=== PATIENT | female | born 1995 | race Caucasian/White ===

== ENCOUNTER 2020-04-03 07:33 | Day surgery (SDC) | payer OTHER, SELFPAY ==
[~2020-04-03] VITALS: Ht 170.2 cm; Wt 77.1 kg
[2020-04-03] MEDS ORDERED: MIDAZOLAM 2 MG/2 ML VIAL ONE (08:52)
[2020-04-03] MEDS ORDERED: fentaNYL 0.05 MG/ML VIAL ONE (08:52)
[2020-04-03] MEDS ORDERED: LIDOCAINE VISCOUS 2% 20 ML UDC ONE (08:52)
[2020-04-03] MEDS ORDERED: LIDOCAINE 2% 100 MG/5 ML UJET TP ONE (08:53)
[2020-04-03] MEDS ORDERED: MIDAZOLAM 2 MG/2 ML VIAL IVP ONE (09:26)
[2020-04-03] MEDS ORDERED: fentaNYL 0.05 MG/ML VIAL IVP ONE (09:27)
== END 2020-04-03 09:43 | disposition home or self-care (01) ==
LOC: MDS 07:33 → MMU 07:34 → MDS 09:43
PROVIDERS: ATTEND Internal Medicine Gastroenterology
DX: R63.4 Abnormal weight loss (principal); K64.8 Other hemorrhoids; R10.84 Generalized abdominal pain; I10 Essential (primary) hypertension; Z79.899 Other long term (current) drug therapy; Z11.59 Encounter for screening for other viral diseases
CPT/HCPCS: 43239; 45380; 84703; J2250; J3010; U0003

== ENCOUNTER 2021-03-13 12:02 | Day surgery (SDC) | payer OTHER, SELFPAY ==
[~2021-03-13] VITALS: Ht 170.2 cm; Wt 77.1 kg
[2021-03-13] MEDS ORDERED: diphenhydrAMINE 50 MG/ML VIAL ONE (13:24)
[2021-03-13] MEDS ORDERED: fentaNYL citrate 0.05 MG/ML VIAL ONE (13:24)
[2021-03-13] MEDS ORDERED: LIDOCAINE 2% 100 MG/5 ML UJET TP ONE (13:25)
[2021-03-13] MEDS ORDERED: MIDAZOLAM 5 MG/5 ML VIAL ONE (13:25)
[2021-03-13] MEDS ORDERED: fentaNYL citrate 0.05 MG/ML VIAL IVP ONE (13:45)
[2021-03-13] MEDS ORDERED: MIDAZOLAM 2 MG/2 ML VIAL IVP ONE (13:45)
== END 2021-03-13 14:20 | disposition home or self-care (01) ==
LOC: MMU 12:02 → MDS 12:02
PROVIDERS: ATTEND Internal Medicine Gastroenterology
DX: K62.5 Hemorrhage of anus and rectum (principal); K59.00 Constipation, unspecified; K64.8 Other hemorrhoids; Z79.899 Other long term (current) drug therapy; Z20.822 Contact with and (suspected) exposure to COVID-19
CPT/HCPCS: 45330; 81025; J2250; J3010; U0003; J1200